=== PATIENT | male | born 1940 | race American Indian/Alaskan Native ===

== ENCOUNTER 2016-12-22 17:27 | Emergency (ER) | payer MEDICARE ==
--- NOTE | 2016-12-22 18:48 | ER Document Report ---
ED Medical Screen (RME) - General Chief Complaint: Diarrhea Stated Complaint: NAUSEA/WEAKNESS Time Seen by Provider: 12/22/16 18:30 Mode of Arrival: Ambulatory Information source: Patient TRAVEL OUTSIDE OF THE [place] IN LAST 30 DAYS: Yes COUNTRY TRAVELED TO/FROM: [place] - [facility] Patient complains to provider of: diarrhea Onset: Other - 1 month Quality of pain: Achy, Cramping Severity: Mild Pain Level: 1 Associated Symptoms: Diarrhea, Dizzy/lightheaded Exacerbated by: Denies Relieved by: Denies Notes: 12/22/16 18:47 Patient is a 75-year-old male who presents to the emergency room complaining of diarrhea 1 months duration, symptoms started while he was in [place] recently, he lives in [place] but frequently visits [place] and [place] to see family, he was prescribed a course of antibiotics from a doctor in [place] but his symptoms have not improved at all, he denies any blood, no fever, he does report occasional crampy abdominal pain - Related Data Allergies/Adverse Reactions: No Known Allergies Allergy (Unverified 12/22/16 17:36) Past Medical History - Social History Chew tobacco use (# tins/day): No Frequency of alcohol use: Occasional Drug Abuse: None - Past Medical History Cardiac Medical History: Reports: Hx Hypertension Renal/ Medical History: Denies: Hx Peritoneal Dialysis Past Surgical History: Reports: Hx Orthopedic Surgery - arthritis Physical Exam - Vital signs Vitals: Temp Pulse Resp BP Pulse Ox 98.5 F 56 L 18 155/79 H 98 12/22/16 17:36 12/22/16 17:36 12/22/16 17:36 12/22/16 17:36 12/22/16 17:36 Course - Vital Signs Vital signs: Temp Pulse Resp BP Pulse Ox 98.5 F 56 L 18 155/79 H 98 12/22/16 17:36 12/22/16 17:36 12/22/16 17:36 12/22/16 17:36 12/22/16 17:36
[2016-12-22 19:04] LABS: ABSOLUTE BASOPHILS # (AUTO) 0.1 10^3/uL (0.0-0.2); ABSOLUTE EOSINOPHILS # (AUTO) 0.1 10^3/uL (0.0-0.6); ABSOLUTE LYMPHOCYTES (AUTO) 1.3 10^3/uL (0.5-4.7); ABSOLUTE MONOCYTES (AUTO) 0.6 10^3/uL (0.1-1.4); ABSOLUTE NEUT (AUTO) 4.9 10^3/uL (1.7-8.2); BASOPHILS % (AUTO) 0.7 % (0-2); EOSINOPHILS % (AUTO) 1.5 % (0-6); HEMATOCRIT 44.2 % (37.9-51.0); HEMOGLOBIN 14.7 g/dL (13.5-17.0); HGB HCT DIFFERENCE -0.1; LYMPHOCYTES % (AUTO) 18.2 % (13-45); MEAN CORPUSCULAR HEMOGLOBIN 32.1 pg (27.0-33.4); MEAN CORPUSCULAR HGB CONC 33.2 g/dL (32.0-36.0); MEAN CORPUSCULAR VOLUME 97 fl (80-97); MONOCYTES % (AUTO) 8.8 % (3-13); RED BLOOD COUNT 4.57 10^6/uL (4.35-5.55); RED CELL DISTRIBUTION WIDTH 13.5 % (11.5-14.0); SEGMENTED NEUTROPHILS % (AUTO) 70.8 % (42-78); WHITE BLOOD COUNT 6.9 10^3/uL (4.0-10.5)
[2016-12-22] MEDS ORDERED: NORMAL SALINE 1000 ML 1,000 ML IV ONE (19:19)
--- NOTE | 2016-12-22 19:21 | ER Document Report ---
ED GI/ - General Chief Complaint: Diarrhea Stated Complaint: NAUSEA/WEAKNESS Time Seen by Provider: 12/22/16 18:30 Mode of Arrival: Ambulatory Notes: Patient is a 75-year-old male who comes emergency department for chief complaint of diarrhea, he states that today he has felt weak and tired in addition to feeling dry, he states he is worried he has gotten dehydrated from the diarrhea. He denies dizziness, chest pain, shortness of breath, fever. He reports intermittent crampy abdominal pains, he had about 3 episodes of diarrhea a day. Symptoms started 1 month ago after leaving [place]. He has a home in both [place] and [place], he is visiting family here. He states he completed a course of antibiotics for this already but is not sure which one and had no change in symptoms. PMH umbilical hernia repair, hypertension, GERD. TRAVEL OUTSIDE OF THE [place] IN LAST 30 DAYS: Yes COUNTRY TRAVELED TO/FROM: [place] - Related Data Allergies/Adverse Reactions: No Known Allergies Allergy (Unverified 12/22/16 17:36) Past Medical History - General Information source: Patient - Social History Smoking Status: Never Smoker Chew tobacco use (# tins/day): No Frequency of alcohol use: Occasional Drug Abuse: None Lives with: Family Family History: Reviewed & Not Pertinent Patient has suicidal ideation: No Patient has homicidal ideation: No - Past Medical History Cardiac Medical History: Reports: Hx Hypertension Renal/ Medical History: Denies: Hx Peritoneal Dialysis GI Medical History: Reports: Hx Gastroesophageal Reflux Disease Past Surgical History: Reports: Hx Orthopedic Surgery - arthritis - Immunizations Hx Diphtheria, Pertussis, Tetanus Vaccination: Yes Review of Systems - Review of Systems Constitutional: No symptoms reported EENT: No symptoms reported Cardiovascular: No symptoms reported Respiratory: No symptoms reported Gastrointestinal: See HPI Genitourinary: No symptoms reported Male Genitourinary: No symptoms reported Musculoskeletal: No symptoms reported Skin: No symptoms reported Hematologic/Lymphatic: No symptoms reported Neurological/Psychological: No symptoms reported Physical Exam - Vital signs Vitals: Temp Pulse Resp BP Pulse Ox 98.5 F 56 L 18 155/79 H 98 12/22/16 17:36 12/22/16 17:36 12/22/16 17:36 12/22/16 17:36 12/22/16 17:36 Interpretation: Normal - General General appearance: Appears well In distress: None - patient alert, relaxed, well appearing - HEENT Head: Normocephalic, Atraumatic Eyes: Normal Pupils: PERRL - Respiratory Respiratory status: No respiratory distress Chest status: Nontender Breath sounds: Normal. No: Decreased air movement, Productive cough, Wheezing Chest palpation: Normal - Cardiovascular Rhythm: Regular. No: Tachycardia Heart sounds: Normal auscultation, S1 appreciated, S2 appreciated Murmur: No - Abdominal Inspection: Other - appears to have umbilical scar Distension: No distension Bowel sounds: Normal Tenderness: Nontender - I do not appreciate any tenderness to the abdomen. No: Tender, Guarding Organomegaly: No organomegaly - Back Back: Normal, Nontender. No: Tender - Extremities General upper extremity: Normal inspection, Nontender, Normal color, Normal ROM , Normal temperature General lower extremity: Normal inspection, Nontender, Normal color, Normal ROM , Normal temperature, Normal weight bearing. No: Cosme's sign - Neurological Neuro grossly intact: Yes Cognition: Normal Orientation: AAOx4 Sony Coma Scale Eye Opening: Spontaneous [place] Coma Scale Verbal: Oriented Sony Coma Scale Motor: Obeys Commands Sony Coma Scale Total: 15 Speech: Normal Cranial nerves: Normal Cerebellar coordination: Normal Motor strength normal: LUE, RUE, LLE, RLE Additional motor exam normals: Equal gis manager Sensory: Normal - Psychological Associated symptoms: Normal affect, Normal mood - Skin Skin Temperature: Warm Skin Moisture: Dry Skin Color: Normal Course - Re-evaluation Re-evalutation: Patient is well-appearing, has a soft abdomen, no tachycardia, hypotension, or fever. Patient did not have difficulty providing stool sample. CBC, chemistry unremarkable. Urinalysis unremarkable. Stool shows no blood but shows white blood cells. C. difficile is negative. Culture pending. Discussed results with patient and daughter, decision made to start patient on cipro for infectious diarrhea pending culture, recommended probiotics, discussed followup and return precautions. Patient and daughter state understanding and agreement. - Vital Signs Vital signs: Temp Pulse Resp BP Pulse Ox 97.9 F 62 18 150/80 H 99 12/22/16 23:33 12/22/16 23:33 12/22/16 23:33 12/22/16 23:33 12/22/16 23:33 - Laboratory Result Diagrams: 12/22/16 18:45 12/22/16 18:45 Laboratory results interpreted by me: 12/22/16 12/22/16 18:45 20:33 Urine Blood SMALL H Stool for White Cells MODERATE H Discharge - Discharge Clinical Impression: Diarrhea Qualifiers: Diarrhea type: presumed infectious Qualified Code(s): A09 - Infectious gastroenteritis and colitis, unspecified Condition: Stable Disposition: HOME, SELF-CARE Additional Instructions: You are being treated for infectious diarrhea, take the cipro as prescribed to completion. We have a stool culture growing in our labs. I also recommend a probiotic supplement. Follow up with primary care. Return to the ED for any concerning or worsening symptoms - abdominal pain, spiking fever, dizziness, etc. Prescriptions: Ciprofloxacin HCl [Cipro 500 mg Tablet] 500 mg PO BID #14 tablet
[2016-12-22 19:23] LABS: ALANINE AMINOTRANSFERASE 32 U/L (21-72); ALBUMIN 4.2 g/dL (3.5-5.0); ALKALINE PHOSPHATASE 84 U/L (38-126); ANION GAP 10 (5-19); ASPARTATE AMINO TRANSFERASE 24 U/L (17-59); BILIRUBIN,DIRECT 0.2 mg/dL (0.0-0.4); BILIRUBIN,TOTAL 0.7 mg/dL (0.2-1.3); BLOOD UREA NITROGEN 17 mg/dL (7-20); CALCIUM 8.8 mg/dL (8.4-10.2); CARBON DIOXIDE 27 mmol/L (22-30); CHLORIDE 101 mmol/L (98-107); CREATININE RESULT 0.94 mg/dL (0.52-1.25); GLUCOSE 91 mg/dL (75-110); POTASSIUM 3.8 mmol/L (3.6-5.0); SODIUM 138.1 mmol/L (137-145); TOTAL PROTEIN 7.2 g/dL (6.3-8.2)
[2016-12-22 20:28] LABS: APPEARANCE,URINE CLEAR; BILIRUBIN,URINE NEGATIVE (NEGATIVE); GLUCOSE, URINE NEGATIVE (NEGATIVE); KETONES,URINE NEGATIVE (NEGATIVE); LEUKOCYTE ESTERASE,URINE NEGATIVE (NEGATIVE); NITRITE,URINE NEGATIVE (NEGATIVE); PROTEIN,URINE NEGATIVE (NEGATIVE); URINE SPECIFIC GRAVITY 1.005; UROBILINOGEN,URINE NEGATIVE mg/dL (<2.0)
[2016-12-22] MEDS ORDERED: CIPROFLOXACIN HCL 500 MG TABLET PO ONE (21:59)
[2016-12-22 23:33] VITALS: BP 150/80
== END 2016-12-22 23:35 | disposition home or self-care (01) ==
LOC: EDBD 17:27 → ER 17:27
DX: A09 Infectious gastroenteritis and colitis, unspecified (principal); R11.0 Nausea; R53.1 Weakness; I10 Essential (primary) hypertension; K21.9 Gastro-esophageal reflux disease without esophagitis
CPT/HCPCS: 99284; 96360; 96361; 36415; 87040; 87045; 87086; 89055; 87205; 83690; 85025; 82272; 80053; 81001; 87493 ×2; A9270; J7030